=== PATIENT | female | born 1965 | race Caucasian/White ===

== ENCOUNTER 2020-11-07 11:28 | Emergency (ER) | payer OTHER ==
[~2020-11-07] VITALS: Ht 165.1 cm; Wt 74.8 kg
--- NOTE | 2020-11-07 12:05 | NUR ---
LOW BACK PAIN X 3 DAYS,DENIES ANY TRAUMA. PATIENT A/OX4, BREATHING EVEN AND UNLABORED, AMBULATORY W/ STEADY GAIT.
--- NOTE | 2020-11-07 12:22 | NUR ---
URINE SENT TO LAB
[2020-11-07 12:28] LABS: BILIRUBIN,URINE SMALL (NEGATIVE); COLOR,URINE YELLOW (YELLOW); LEUKOCYTE ESTERASE ,URINE Negative (NEGATIVE); NITRITE, URINE Negative (NEGATIVE); PROTEIN,URINE 30 mg/dl (NEGATIVE); UGLUCOSE Negative (NEGATIVE); UROBILINOGEN,URINE 0.2 EU/dL (0.2)
[2020-11-07 12:38] LABS: BACTERIA,URINE Few /HPF (None Seen); RBC,URINE 0-2 /HPF (0-2); SQUAMOUS EPITHELIAL CELL,UR 0-2 /HPF (None Seen); WBC,URINE 0-2 /HPF (0-3)
[2020-11-07] MEDS ORDERED: IBUP-1953 PO (12:59)
--- NOTE | 2020-11-07 13:35 | NUR ---
Patient discharged to home in stable condition. Written and verbal after care instructions given. Patient verbalizes understanding of instruction.
[2020-11-07 13:36] VITALS: BP 99/60
== END 2020-11-07 13:37 | disposition home or self-care (01) ==
LOC: ER 11:35
DX: M54.5 Low back pain (principal)
CPT/HCPCS: 71045-TC; 81001